=== PATIENT | female | born 1970 | race Caucasian/White ===

== ENCOUNTER 2021-11-14 05:32 | Emergency (ER) | payer OTHER ==
[2021-11-14] MEDS ORDERED: PREDNISONE 20 M20 MG PO (08:56)
[2021-11-14] MEDS ORDERED: KENALOG 0.5% CR15 GM EXT (08:58)
== END 2021-11-14 09:13 | disposition home or self-care (01) ==
LOC: ER1 05:32
DX: L50.0 Allergic urticaria (principal); J44.9 Chronic obstructive pulmonary disease, unspecified; Z88.1 Allergy status to other antibiotic agents; F17.290 Nicotine dependence, other tobacco product, uncomplicated; Z90.49 Acquired absence of other specified parts of digestive tract
CPT/HCPCS: 94664; 96374; 96375; 99282; J2930